=== PATIENT | male | born 1940 | race Caucasian/White ===

== ENCOUNTER 2018-05-07 06:11 | Inpatient (IN) | payer MEDICARE, OTHER, SELFPAY ==
[2018-04-22 09:59] VITALS: BMI 25.8
[2018-05-07] VITALS (13 sets, daily range): BP systolic 121–163; BP diastolic 72–97; PULSE 67–88; RESP 10–18; TEMP 35.8–37.3; O2SAT 94–99; BMI 25.8
[2018-05-07] MEDS: LACTATED RINGERS 1,000 ML 42 ML IV ×2 (07:10→10:08)
--- NOTE | 2018-05-07 08:00 | DI.RAD.S_ITS ---
PROCEDURE: XR LUMBAR SPINE 2-3V INDICATIONS: L3-4, L4-5 TLIF TECHNIQUE: 2 views of the lumbar spine were acquired. COMPARISON: [facility] MAI Chavez, SPINE LUMB 2 OR 3VW, 04/16/2017, 10:22. FINDINGS: Bones: AP and lateral images were obtained intraoperatively during discectomy at the L3-4 and L4-5 levels with posterior fixation including trans-peduncular screws and vertical connecting rods bilaterally L3-L5. Soft tissues: Overlying bowel gas pattern is normal. No suspicious soft tissue calcifications. IMPRESSION: Intraoperative imaging posterior discectomy and fusion L3-4 and L4-5. Dictated by: Jimmy Ignacio M.D. on 05/07/2018 at 12:38 Approved by: Jimmy Ignacio M.D. on 05/07/2018 at 12:39
[2018-05-07] MEDS: CEFAZOLIN 2 GM/100 ML FROZ.PIGGY IV ×2 (08:12→16:34)
--- NOTE | 2018-05-07 08:48 | SUR.OPER ---
Prone on spine table, head in foam head support, padded chest and pelvic supports, gel pad at knees, lower legs supported by pillows; nipples, genitalia and toes free of pressure, arms secured on foam padded arm boards at <90 degrees abduction. Tape over blanket at thigh secured to table.
[2018-05-07] MEDS: BUPIVACAINE 0.25% W/ EPI VIAL 50 ML INJ (09:00)
[2018-05-07] MEDS: BUPIVACAINE LIPOSOME 266 MG/20 ML VIAL INJ (09:01)
[2018-05-07] MEDS: ACETAMINOPHEN IV 1,000 MG/100 ML VIAL 400 MG IV (10:27)
--- NOTE | 2018-05-07 11:19 | PM.OP.1 ---
Operative Date/Time/Diagnoses Date of procedure: 05/07/18 Time of procedure: 08:19 Pre-op diagnosis: 1. L3-4, L4-5 spondylolisthesis 2. L2-3, L3-4, L4-5 spinal stenosis 3. L2-3, L3-4, L4-5 spondylosis with radiculopathy Post-op diagnosis: same Procedure & Clinicians Procedure: 1. L3-4, L4-5 Postero-lateral and posterior interbody fusion 2. L3-4, L4-5 interbody cage placement. 3. L3-4, L4-5 decompressive laminectomy with bilateral facetecomies 4. L3-4, L4-5 Posterior segmental instrumentation 5. L2-3 left hemilaminectomy 6. [place] of bone marrow from iliac crest 7. Utilization of microsurgical technique and operating microscope Same procedure as scheduled: Yes Indications: Patient has been having chronic back pain and worsening lumbar radiculopathy. Patient failed multiple conservative management with worsening pain weakness and numbness in her lower extremity. Patient has been having difficulty performing activity of daily living. After discussing risks benefits of treatment options, patient elected proceed with surgery. Surgeon: Shikha Huynh Dairy Processing Supervisor: April Robert Click Yes if Unassisted: No Anesthesia Type: General Operative Notes Closure Type: primary Specimen(s): none sent Implants & Drains: Globus rise cage and revolve screws Applied: catheter Estimated Blood Loss (mL): 100 Blood products transfused: none Procedure in detail: Patient was seen in the preoperative area. Risks and benefits of the surgery was discussed with the patient. Informed consent was obtained from the patient and placed in the chart. Surgical site was marked. Patient was taken to the operative room. General anesthesia was administered. Prophylactic antibiotic was given to the patient less than 30 min before the incision was made. Patient was placed into a prone position on the Monty table. Patient's back was then prepped and draped in the sterile fashion. Time-out was performed at this time. Using AP and lateral C-arm imaging the interval between L2-5 was identified and marked on patient's back. A 2 inch incision 2 in from midline was made on the left side first. The fascia was incised in line with skin incision. Globus MARS retractors was placed inside the incision and docked onto the L3 and L4 lamina. Using microsurgical technique and operating microscope, a L3 and L4 laminectomy and L3-4, L4-5 facetectomy was performed using a Kerrison rongeur. A L2-3 hemilaminectomy was performed using Kerrison rongeur by removing the left sided L2 lamina. The lateral recess was decompressed and ligamentum flavum was also resected using the Kerrison rongeur. After decompression at L2-3 level, the epidural space was fully decompressed. The disc space at L3-4, L4-5 was identified. And a total diskectomy was performed at L3-4, L4-5 level. The endplates were decorticated using a rasp and shaver. The total diskectomy and decortication was performed at L3-4, L4-5 level in order to to accomplish a L3-4, L4-5 fusion. The local bone from the laminectomy and facetectomy was saved for local bone grafting. After the total diskectomy and decortication was completed, Globus viacell bone graft material was combined with local bone that was harvested earlier. At this time, a separate skin is incision was made over the iliac crest. A Jamshidi needle was inserted into the iliac crest through a separate skin incision. 5 cc of bone marrow aspiration was obtained through the separate skin incision using a Jamshidi needle from the iliac crest. The bone marrow aspiration was combined with local bone and the via cell bone grafting material. The bone grafting material was placed into the L3-4, L4-5 interbody space along with two cages, one expandable cage at each level. The cages were expanded to their maximum height using the torque limiting screwdriver. At this time a mirror image incision was made on the right side. The fascia was incised in line with the skin incision. Globus MARS retractor was inserted and docked onto the L3-4, L4-5 posterolateral gutter. Using the power drill, posterior-lateral decortication was performed at L3-4, L4-5 level until bleeding cortical bone was identified. The remaining bone grafting material was placed into the L3-4, L4-5 posterior lateral gutter he order to accomplish posterolateral fusion at the L4-5 L5-S1 levels. Using the double C-arm technique, pedicle screws were placed into the L3, L4, L5 pedicles bilaterally. This was done by placing the Jamshidi needle into the pedicles, then placing the guidewires over the Jamshidi needle, and finally placing the cannulated screws over the guidewires bilaterally. After the pedicle screws were placed, 2 titanium rods was locked into the heads of the pedicle screws using locking caps and torque limiting screwdriver. Total 6 pedicles screws were placed. Threaded oil lease operator was to used to reduce patient's spondylolisthesis. Patient's spondylolisthesis was reduced to near anatomic position and locked into position using the locking caps. After all the hardware was placed, and confirmed with AP and lateral C-arm imaging, the wound was then irrigated with sterile normal saline and packed with Ray-Pierer gauze for 3 min to accomplish hemostasis. After the gauze was removed the deep fascia was closed with #1 Vicryl suture. The subcutaneous layer was closed with 2-0 Vicryl. The skin was closed with skin sherry. Patient tolerated the procedure well. There were no complications. Complications: none Condition: stable Disposition: PACU Plan for aftercare: Admit to inpatient hospital
--- NOTE | 2018-05-07 11:26 | P.OP_ITS ---
Operative Date/Time/Diagnoses Date of procedure: 05/07/18 Time of procedure: 08:19 Pre-op diagnosis: 1. L3-4, L4-5 spondylolisthesis 2. L2-3, L3-4, L4-5 spinal stenosis 3. L2-3, L3-4, L4-5 spondylosis with radiculopathy Post-op diagnosis: same Procedure & Clinicians Procedure: 1. L3-4, L4-5 Postero-lateral and posterior interbody fusion 2. L3-4, L4-5 interbody cage placement. 3. L3-4, L4-5 decompressive laminectomy with bilateral facetecomies 4. L3-4, L4-5 Posterior segmental instrumentation 5. L2-3 left hemilaminectomy 6. [place] of bone marrow from iliac crest 7. Utilization of microsurgical technique and operating microscope Same procedure as scheduled: Yes Indications: Patient has been having chronic back pain and worsening lumbar radiculopathy. Patient failed multiple conservative management with worsening pain weakness and numbness in her lower extremity. Patient has been having difficulty performing activity of daily living. After discussing risks benefits of treatment options, patient elected proceed with surgery. Surgeon: Shikha Huynh Multi Purpose Machine Operator: April Robert Click Yes if Unassisted: No Anesthesia Type: General Operative Notes Closure Type: primary Specimen(s): none sent Implants & Drains: Globus rise cage and revolve screws Applied: catheter Estimated Blood Loss (mL): 100 Blood products transfused: none Procedure in detail: Patient was seen in the preoperative area. Risks and benefits of the surgery was discussed with the patient. Informed consent was obtained from the patient and placed in the chart. Surgical site was marked. Patient was taken to the operative room. General anesthesia was administered. Prophylactic antibiotic was given to the patient less than 30 min before the incision was made. Patient was placed into a prone position on the Monty table. Patient's back was then prepped and draped in the sterile fashion. Time- out was performed at this time. Using AP and lateral C-arm imaging the interval between L2-5 was identified and marked on patient's back. A 2 inch incision 2 in from midline was made on the left side first. The fascia was incised in line with skin incision. Globus MARS retractors was placed inside the incision and docked onto the L3 and L4 lamina. Using microsurgical technique and operating microscope, a L3 and L4 laminectomy and L3-4, L4-5 facetectomy was performed using a Kerrison rongeur. A L2-3 hemilaminectomy was performed using Kerrison rongeur by removing the left sided L2 lamina. The lateral recess was decompressed and ligamentum flavum was also resected using the Kerrison rongeur. After decompression at L2- 3 level, the epidural space was fully decompressed. The disc space at L3-4, L4- 5 was identified. And a total diskectomy was performed at L3-4, L4-5 level. The endplates were decorticated using a rasp and shaver. The total diskectomy and decortication was performed at L3-4, L4-5 level in order to to accomplish a L3-4 , L4-5 fusion. The local bone from the laminectomy and facetectomy was saved for local bone grafting. After the total diskectomy and decortication was completed, Globus viacell bone graft material was combined with local bone that was harvested earlier. At this time, a separate skin is incision was made over the iliac crest. A Jamshidi needle was inserted into the iliac crest through a separate skin incision. 5 cc of bone marrow aspiration was obtained through the separate skin incision using a Jamshidi needle from the iliac crest. The bone marrow aspiration was combined with local bone and the via cell bone grafting material. The bone grafting material was placed into the L3-4, L4-5 interbody space along with two cages, one expandable cage at each level. The cages were expanded to their maximum height using the torque limiting screwdriver. At this time a mirror image incision was made on the right side. The fascia was incised in line with the skin incision. Globus MARS retractor was inserted and docked onto the L3-4, L4-5 posterolateral gutter. Using the power drill, posterior-lateral decortication was performed at L3-4, L4-5 level until bleeding cortical bone was identified. The remaining bone grafting material was placed into the L3-4, L4-5 posterior lateral gutter he order to accomplish posterolateral fusion at the L4-5 L5-S1 levels. Using the double C-arm technique, pedicle screws were placed into the L3, L4, L5 pedicles bilaterally. This was done by placing the Jamshidi needle into the pedicles, then placing the guidewires over the Jamshidi needle, and finally placing the cannulated screws over the guidewires bilaterally. After the pedicle screws were placed, 2 titanium rods was locked into the heads of the pedicle screws using locking caps and torque limiting screwdriver. Total 6 pedicles screws were placed. Threaded auto bumper mechanic was to used to reduce patient's spondylolisthesis. Patient's spondylolisthesis was reduced to near anatomic position and locked into position using the locking caps. After all the hardware was placed, and confirmed with AP and lateral C-arm imaging, the wound was then irrigated with sterile normal saline and packed with Ray-Pierre gauze for 3 min to accomplish hemostasis. After the gauze was removed the deep fascia was closed with #1 Vicryl suture. The subcutaneous layer was closed with 2-0 Vicryl. The skin was closed with skin sherry. Patient tolerated the procedure well. There were no complications. Complications: none Condition: stable Disposition: PACU Plan for aftercare: Admit to inpatient hospital
--- NOTE | 2018-05-07 11:30 | PM.PREOP ---
Pre-operative Note Interval Note Pre-op Check: Yes History & Physical Reviewed by Physician, Yes Exam Performed and Yes History & Physical exam performed today by Physician Changes: No
[2018-05-07] MEDS: HYDROMORPHONE 2 MG INJ 0.25 MG IV ×8 (11:40→12:15)
[2018-05-07] MEDS: SODIUM CHLORIDE 0.9% 1,000 ML 100 ML IV (13:14)
[2018-05-07] MEDS: OXYCODONE IR 5 MG TABLET 10 MG PO ×4 (13:17→21:25)
--- NOTE | 2018-05-07 14:43 | PC.NURSE ---
Pt to floor at 1230. Given 2 percolone about an hour apart. Pain level is a 3/10. Pt is resting and visiting with his . IVF of NS infusing at 100cc/hr. O nausea and taking fluids and ice chips well.
--- NOTE | 2018-05-07 15:43 | PT.IIE ---
Current Diagnoses Spondylolisthesis, lumbar region (05/07/18) Other spondylosis with radiculopathy, lumbar region (05/07/18) Spinal stenosis, lumbar region without neurogenic claudication (05/07/18) Surgery Performed Operation Date: 05/07/18 07:45 Actual Procedures p L2-3 Right Hemilaminectomy, L3-4, L4-5 TLIF w/Posterior Instru. - Shikha Huynh MD Surgical History (Last Updated 04/22/18 @ 11:05 by Casandra Noonan RN) History of right inguinal hernia repair (Acute) Hx of arthroscopy of left knee (Acute) Hx of tonsillectomy (Acute) Status post cataract extraction of both eyes with insertion of intraocular lens (Acute) Medical History (Last Updated 04/22/18 @ 10:46 by Casandra Noonan RN) Afib (Acute) BPH (benign prostatic hyperplasia) (Acute) Chronic systolic CHF (congestive heart failure) (Acute) HTN (hypertension) (Acute) Non-ischemic cardiomyopathy (Acute) Presence of combination internal cardiac defibrillator (ICD) and pacemaker (Acute) Sleep apnea with use of continuous positive airway pressure (CPAP) (Acute) Physical Therapy Inpatient Evaluation/Re-Eval M1 PT/OT-IP Prior Functional Status Start: 05/07/18 16:21 Freq: NEEDED Status: Active Protocol: Document 05/07/18 15:43 MDD (Rec: 05/07/18 16:31 MDD [id number]) Medical Review Prior Functional Status Medical History Reviewed Yes Communication normal Mobility and Gait independent with no AD Activities of Daily Living and IADL's independent Social History Household Members spouse Living Arrangements House Number of Floors (Floors) One Floor Number of Stairs To Enter/Railing? 2-3 steps, railing present ( single) Home Environment Standard Height Toilet Walk in Shower Home Equipment Front Wheel Walker Straight Cane Crutches Shower Seat with Backrest Repair Armature Winder Grab Bars Near Toilet Employment Status Retired Additional Social History Comment Pt and his live in [place] on [address] 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 Their son lives next door, but works daytime caregiver. M2 PT-IP Current Condition Start: 05/07/18 16:21 Freq: NEEDED Status: Active Protocol: Document 05/07/18 15:43 MDD (Rec: 05/07/18 16:31 [facility] [id number]) Physical Therapy Current Condition Current Condition Evaluation Date 05/07/18 Treatment Diagnosis s/p lumbar surgery Onset Date 05/07/18 Precautions Cervical Spine Precautions Soft Collar for Comfort Soft Collar at all Times Rigid Collar No Heavy Lifting Log Roll Other Precautions cody catheter Weight Bearing Status Weight Bearing Status Weight Bear as Tolerated M3 PT-IP Subjective Start: 05/07/18 16:21 Freq: NEEDED Status: Active Protocol: Document 05/07/18 15:43 MDD (Rec: 05/07/18 16:31 [facility] [id number]) Subjective Physical Therapy Visit Type Type Initial Evaluation Visit Start Time 15:05 Visit Stop Time 15:43 Total Visit Minutes 38 Notes BP at beginning of session: 139/97 (supine) sitting EOB: 147/101 after gait: 148/95 Number of HOME HEALTH OUTREACH COORDINATOR Visits 0 Therapy Pain Assessment Pain When Pain Assessed At Rest Pain Present Pain Present Pain Reported Location Lower back Intensity 3 Scale Used Numeric (1 - 10) Description Aching M4 PT-IP Mobility and Gait Start: 05/07/18 16:21 Freq: NEEDED Status: Active Protocol: Document 05/07/18 15:43 MDD (Rec: 05/07/18 16:31 [facility] [id number]) PT-Bed Mobility Assessment Rolling Type of Rolling Log Rolling Roll to Left Level of Assist Standby Assistance Supine to Sit Supine to Sit Minimal Assistance Sit to Supine Sit to Supine Standby Assistance Scooting Scooting to Edge of Bed Independent Scooting Up and Down in Bed Independent PT-Transfer Assessment Sit to and From Stand Sit to and from Stand Contact Guard Assistance Equipment Transfer Assistive Device Gait Belt Front Wheeled Walker Gait Assessment Gait Gait Assistance Required: Contact Guard Assist Distance (Feet) (feet) 15 Assistive Devices Assistive Device Gait Belt Front Wheeled Walker Gait Deviations General Gait Pattern Within Normal Limits Decreased Stride Length Comments Gait Comments Cues for improved posture. PT-Balance Assessment Sitting Balance and Reactions Static Sitting Balance Ability Good Dynamic Sitting Balance Ability Good Standing Balance and Reactions Static Standing Balance Ability Normal Dynamic Standing Balance Ability Good M5 PT-IP Objective Assessments Start: 05/07/18 16:21 Freq: NEEDED Status: Active Protocol: Document 05/07/18 15:43 MDD (Rec: 05/07/18 16:31 [facility] [id number]) Orientation Orientation/Cognition Level of Alertness Alert Orientation Name Age Birthday Month Date Year Day of Week Place Situation Language Function Ability No Deficits Noted Safety Awareness Understands Safety Issues Memory Description No Deficits Noted Gross Range of Motion Lower Extremity ROM Assessment Within Functional Limits Strength Lower Extremity Strength Assessment Within Functional Limits Sensation Assessment Sensation Gross Sensation WNL Light Touch Intact M6 PT-IP Treatment Start: 05/07/18 16:21 Freq: NEEDED Status: Active Protocol: Document 05/07/18 15:43 MDD (Rec: 05/07/18 16:31 MDD [id number]) Physical Therapy Treatment Education Education Provided Precautions Post-Op Packet Safety M7 PT-IP Assessment and Plan Start: 05/07/18 16:21 Freq: NEEDED Status: Active Protocol: Document 05/07/18 15:43 MDD (Rec: 05/07/18 16:31 MDD [id number]) PT Summary Assessment and Plan Potential Rehabilitation Potential Excellent Status of Condition at Evaluation Stable Summary Impairments Pain Bed Mobility Transfers Gait Activity Tolerance Progress Towards Goals Progressing Toward Goals Assessment Summary Pt demonstrates ability to perform log roll to left today with minimal verbal cues and SBA and able to sit up with CGA. Blood pressure was elevated, so walking limited to in room. Demonstrates stable gait with FWW. Will need to be able to ascend/ descend 2-3 stairs with single railing prior to d/c. Goals Bed Mobility Goal Independent Transfer Goal Independent Gait Goal Independent Gait Distance 100 feet with FWW Other Goals Ascend/descend 3 steps with single railing Days to Meet Goals 3 Frequency of Treatment Frequency Of Treatment Twice a Day Treatment Plan Physical Therapy Treatment Plan Bed Mobility Training Transfer Training Gait Training Therapeutic Exercise Discharge Planning Recommendations To Nursing Amount of Assist Needed Standby Assistance Discharge Recommendations PT Discharge Recommendations Home
[2018-05-07] MEDS: CARVEDILOL 25 MG TABLET PO (20:33)
[2018-05-07] MEDS: DOCUSATE 100 MG CAPSULE PO (20:34)
[2018-05-07] MEDS: SENNOSIDES 8.6 MG TABLET 17.2 MG PO (20:34)
--- NOTE | 2018-05-07 21:28 | PC.NURSE ---
Per pt request, escobar MO'ed at 1954. Pt stating it was uncomfortable and stating he wanted it out, 650 clear bryan urine drained. Ambulated with pt in the halls, pt steady on feet, denies numbness,tingling, and dizziness, 1 PA FWW. Pt denies need for 2 pain pills, requesting only 5 mg of PRN oxycodone, rating his pain in his lower back 3-4/10. Dressing to lower back CDI. Pt denies nausea, tolerated regular diet for dinner. Pt calling appropriately and making needs known to staff. Call light in reach. BA active.
[2018-05-08] MEDS: SODIUM CHLORIDE 0.9% 1,000 ML 100 ML IV
[2018-05-08] MEDS: hydrOXYzine pamoate 25 MG CAPSULE PO (00:33)
[2018-05-08] MEDS: OXYCODONE IR 5 MG TABLET 10 MG PO ×3 (00:33→08:14)
[2018-05-08] MEDS: CEFAZOLIN 2 GM/100 ML FROZ.PIGGY IV (00:33)
[2018-05-08 04:32] VITALS: BP 134/85; PULSE 73; RESP 17; TEMP 36.8; O2SAT 98
--- NOTE | 2018-05-08 05:18 | PC.NURSE ---
pt confused early this am aprx 043, had gotten oob to stand and use urinal at bedside after automobile engine assembler checked on bed alarm. pt had been so thru the night and would sit back down on side of bed. when rechecked pt was up in room w/gown on backwards, water (or urine) on floor, and iv no longer attatched. pt stated I must have been sleepwalking. no signs of bleeding from iv site, iv cath intact,no reports of discomfort to area. pt was aware he was in the hospital, knew he had had back surgery yesterday.remembered this rn's name and that back drsg was reinforced earlier.reoriented to time/place and assisted back to bed, reminded pt to call prior to getting out of bed and reset alarm. pt completed iv antibiotics, and taking po pain meds, did not restart iv.
[2018-05-08 05:45] LABS: Hematocrit 34.3 % (41-53); Hemoglobin 11.8 g/dL (13.5-17.5)
[2018-05-08] MEDS: DOCUSATE 100 MG CAPSULE PO (08:14)
[2018-05-08] MEDS: SPIRONOLACTONE 25 MG TABLET PO (08:14)
[2018-05-08] MEDS: CARVEDILOL 25 MG TABLET PO (08:14)
[2018-05-08] MEDS: TAMSULOSIN 0.4 MG CAPSULE PO (08:14)
[2018-05-08 08:20] VITALS: BP 129/84; PULSE 84; RESP 16; TEMP 37.2; O2SAT 96
[2018-05-08] MEDS: DOFETILIDE 125 MCG 125 EACH PO (08:28)
[2018-05-08] MEDS: SACUBITRIL VALSARTAN 1 EACH PO (08:29)
--- NOTE | 2018-05-08 09:07 | PC.NURSE ---
Pt up ambulating in his room alone. Explained to pt that he should call for help as he could fall and hurt himself. Sitting up in chair now and ate well at breakfast. Dressing to lower back is cdi. Pt denies any numbness or tingling in lower extremities. Visiting with his . She brought two meds from home that patient needed.
--- NOTE | 2018-05-08 09:35 | OT.IP.EVAL ---
Current Diagnoses Spondylolisthesis, lumbar region (05/07/18) Other spondylosis with radiculopathy, lumbar region (05/07/18) Spinal stenosis, lumbar region without neurogenic claudication (05/07/18) Surgery Performed Operation Date: 05/07/18 07:45 Actual Procedures p L2-3 Right Hemilaminectomy, L3-4, L4-5 TLIF w/Posterior Instru. - Shikha Huynh MD Past Medical History (Last Updated 04/22/18 @ 10:46 by Casandra Noonan RN) Afib (Acute) BPH (benign prostatic hyperplasia) (Acute) Chronic systolic CHF (congestive heart failure) (Acute) HTN (hypertension) (Acute) Non-ischemic cardiomyopathy (Acute) Presence of combination internal cardiac defibrillator (ICD) and pacemaker (Acute) Sleep apnea with use of continuous positive airway pressure (CPAP) (Acute) Surgical History (Last Updated 04/22/18 @ 11:05 by Casandra Noonan RN) History of right inguinal hernia repair (Acute) Hx of arthroscopy of left knee (Acute) Hx of tonsillectomy (Acute) Status post cataract extraction of both eyes with insertion of intraocular lens (Acute) Occupational Therapy Inpatient Evaluation/Re-Eval M1 PT/OT-IP Prior Functional Status Start: 05/08/18 14:01 Freq: NEEDED Status: Active Protocol: Document 05/08/18 14:02 EMMANUEL (Rec: 05/08/18 14:10 EMMANUEL [id number]) Medical Review Prior Functional Status Medical History Reviewed Yes Diet/Fluid Consistency Regular Communication normal Mobility and Gait independent with no AD Activities of Daily Living and IADL's independent Prior Functional Level (Other details) Pt lives [place] acres, he hires some help to assist with land management Social History Household Members spouse Living Arrangements House Number of Floors (Floors) One Floor Number of Stairs To Enter/Railing? 2-3 steps, railing present ( single) Home Environment Standard Height Toilet Walk in Shower Home Equipment Front Wheel Walker Straight Cane Crutches Shower Seat with Backrest Psychological Operations Grab Bars Near Toilet Employment Status Retired Additional Social History Comment Pt and his live in [place] on [address] acres [address]. 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 Their son lives next door, but works crop farm helper. M2 OT-IP Current Condition Start: 05/08/18 14:01 Freq: Status: Active Protocol: Document 05/08/18 14:02 PJM (Rec: 05/08/18 14:10 PJM [id number]) Occupational Therapy Current Condition Current Condition Evaluation Date 05/08/18 Treatment Diagnosis assess self care after L3-4, L4-5 decompressive lami, fusion Post Operative Precautions Cervical Spine Precautions Soft Collar for Comfort Soft Collar at all Times Rigid Collar No Heavy Lifting Log Roll Other Precautions cody catheter Weight Bearing Status Weight Bearing Status Weight Bear as Tolerated M3 OT- IP Subjective and Pain Start: 05/08/18 14:01 Freq: Status: Active Protocol: Document 05/08/18 14:02 PJM (Rec: 05/08/18 14:10 PJM [id number]) OT- Subjective Occupational Therapy Visit Type Type Initial Evaluation Visit Start Time 09:15 Visit Stop Time 09:35 Total Visit Minutes 20 Notes Pt's here for education this session. Pt/ familiar with lumbar spine precautions and adapted self care techniques as had lumbar spine surgery by same surgeon 1 yr ago. Occupational Therapy Visit Comments Patient Comments I am feeling pretty good. Patient/Caregiver Goals to go home today OT Pain Assessment Pain When Pain Assessed After Treatment Pain Present Pain Present Pain Reported Location Lower back Intensity 4 Scale Used Numeric (1 - 10) Description Aching Acute M4 OT- IP ADL's Start: 05/08/18 14:01 Freq: Status: Active Protocol: Document 05/08/18 14:02 PJM (Rec: 05/08/18 14:10 PJM [id number]) OT BOP-Waop-Cquazjw General Evaluation Self-Feeding Ability Independent OT ADL-Grooming General Evaluation Grooming Ability Independent Comments OT Grooming Comments Pt standing at sink when therapist arrived. Provided education re: body mechanics at sink. OT ADL-Oral Care General Eval Oral Care Ability Independent OT ADL-Dressing General Eval Upper Body Dressing Ability Independent Lower Body Dressing Ability Minimal Assistance Areas Needing Assistance Underpants/Brief Pants/Shorts Socks Shoes Assistive Devices Dressing Assistive Devices Long Handled Shoe Horn Psychological Operations Comments OT Dressing Comments Pt/ decline sock aid a she prefers to have assist. 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 Provided long shoe horn for slip on shoes. OT ADL-Toileting General Evaluation Toileting Ability Independent Comments OT Toileting Comments Pt has RTS to use PRN at home. OT ADL-Bathing Comments OT Bathing Comments Pt declines to shower here. can provide SBA at home. M5 OT- IP IADL's Start: 05/08/18 14:01 Freq: Status: Active Protocol: Document 05/08/18 14:02 PJ (Rec: 05/08/18 14:10 [facility] [id number]) OT-Instrumental Activities of Daily Living Deficits IADL Deficits Identified Deficits Home Safety Awareness Awareness of Need for Assistance at Home Good Awareness Ability to Problem Solve Emergency Able to Problem Solve Situations Money Management Money Management No Deficits Identified Meal Preparation Meal Preparation Caregiver Provides Assist Bar Finish Operator Bar Finish Operator Caregiver Provides Assist Driving Driving Caregiver Provides Assist Driving Comments until pt able M6 OT- IP Functional Cognition Start: 05/08/18 14:01 Freq: Status: Active Protocol: Document 05/08/18 14:02 PJ (Rec: 05/08/18 14:10 [facility] [id number]) Cognitive Factors Limiting Selfcare Function Cognitive Ability Level of Alertness Alert Patient Orientation Name Age Birthday Month Date Year Day of Week Place Situation Attention Span Ability Capable of Focused Attention Ability to Follow Commands Able to Follow Multi-Step Commands Memory Description No Deficits Noted Safety Awareness No Deficits Noted Problem Solving Ability No deficits Noted Executive Function Ability No Deficits Noted Abstract Thinking Ability No Deficits Noted Cognitive Comments Cognitive Assessment Comments Pt recalls 3/3 lumbar spine precautions. OT- Vision and Hearing OT- Hearing Assessment OT- Hearing Assessment WFL OT- Vision Assessment Visual Acuity WFL Vision Assessment Comments no recent changes reported M7 OT- IP Mobility and Balance Start: 05/08/18 14:01 Freq: Status: Active Protocol: Document 05/08/18 14:02 PJ (Rec: 05/08/18 14:10 [facility] [id number]) OT-Transfer Assessment Sit to and From Stand Sit to and from Stand Independent Transfers Transfer Ability Independent Technique Transfer Destination Chair Toilet Devices Transfer Assistive Devices Front Wheeled Walker OT- Gait Assessment Gait Gait Assistance Required: Standby Assistance Comments Gait Ability Comments PT eval pending OT- Balance Assessment Sitting Balance and Reactions Static Sitting Balance Ability Normal Dynamic Sitting Balance Ability Normal Standing Balance and Reactions Static Standing Balance Ability Normal Dynamic Standing Balance Ability Good M8 OT- IP Objective Assessments Start: 05/08/18 14:01 Freq: Status: Active Protocol: Document 05/08/18 14:02 PJ (Rec: 05/08/18 14:10 [facility] [id number]) OT Gross Range of Motion Upper Extremity Range of Motion Assessment Within Functional Limits OT Strength Upper Extremity Strength Assessment Within Functional Limits OT- Coordination Assessment Comments Coordination Comments BUE WFL OT Sensation Assessment Comments Summary Comments BUE WNL Edema Edema Absent M9 OT- IP Assessment and Plan Start: 05/08/18 14:01 Freq: Status: Active Protocol: Document 05/08/18 14:02 PJ (Rec: 05/08/18 14:10 [facility] [id number]) OT Summary Assessment and Plan Potential Rehabilitation Potential Excellent Analytic Complexity at Evaluation Low Summary Assessment Summary Low complexity OT assessment and brief review of lumbar precautions and adapted ADLS completed in one session. Pt/ familiar with all concepts due to 's lumbar surgery 1 yr ago. Pt plans to d/c home today with 24 hr assist from [employer] , and son lives next door. No further OT services needed. Frequency of Treatment Frequency Of Treatment Discharge
--- NOTE | 2018-05-08 09:47 | PT.IPTN ---
Current Diagnoses Spondylolisthesis, lumbar region (05/07/18) Other spondylosis with radiculopathy, lumbar region (05/07/18) Spinal stenosis, lumbar region without neurogenic claudication (05/07/18) Surgery Performed Operation Date: 05/07/18 07:45 Actual Procedures p L2-3 Right Hemilaminectomy, L3-4, L4-5 TLIF w/Posterior Instru. - Shikha Huynh MD Physical Therapy Treatment Note M2 PT-IP Current Condition Start: 05/07/18 16:21 Freq: NEEDED Status: Active Protocol: Document 05/07/18 15:43 MDD (Rec: 05/07/18 16:31 MDD [id number]) Physical Therapy Current Condition Current Condition Evaluation Date 05/07/18 Treatment Diagnosis s/p lumbar surgery Onset Date 05/07/18 Precautions Cervical Spine Precautions Soft Collar for Comfort Soft Collar at all Times Rigid Collar No Heavy Lifting Log Roll Other Precautions cody catheter Weight Bearing Status Weight Bearing Status Weight Bear as Tolerated M3 PT-IP Subjective Start: 05/07/18 16:21 Freq: NEEDED Status: Active Protocol: Document 05/08/18 09:47 MDD (Rec: 05/08/18 09:57 MDD [id number]) Subjective Physical Therapy Visit Type Type Treatment Note Visit Start Time 09:34 Visit Stop Time 09:47 Total Visit Minutes 13 Number of EDITORIAL SPECIALIST Visits 0 Therapy Pain Assessment Pain When Pain Assessed During Mobility Pain Present Pain Present Pain Reported Location Lower back Intensity 3 Scale Used Numeric (1 - 10) Description Aching M4 PT-IP Mobility and Gait Start: 05/07/18 16:21 Freq: NEEDED Status: Active Protocol: Document 05/07/18 15:43 MDD (Rec: 05/07/18 16:31 MDD [id number]) PT-Bed Mobility Assessment Rolling Type of Rolling Log Rolling Roll to Left Level of Assist Standby Assistance Supine to Sit Supine to Sit Minimal Assistance Sit to Supine Sit to Supine Standby Assistance Scooting Scooting to Edge of Bed Independent Scooting Up and Down in Bed Independent PT-Transfer Assessment Sit to and From Stand Sit to and from Stand Contact Guard Assistance Equipment Transfer Assistive Device Gait Belt Front Wheeled Walker Gait Assessment Gait Gait Assistance Required: Contact Guard Assist Distance (Feet) (feet) 15 Assistive Devices Assistive Device Gait Belt Front Wheeled Walker Gait Deviations General Gait Pattern Within Normal Limits Decreased Stride Length Comments Gait Comments Cues for improved posture. PT-Balance Assessment Sitting Balance and Reactions Static Sitting Balance Ability Good Dynamic Sitting Balance Ability Good Standing Balance and Reactions Static Standing Balance Ability Normal Dynamic Standing Balance Ability Good M5 PT-IP Objective Assessments Start: 05/07/18 16:21 Freq: NEEDED Status: Active Protocol: Document 05/07/18 15:43 MDD (Rec: 05/07/18 16:31 MDD [id number]) Orientation Orientation/Cognition Level of Alertness Alert Orientation Name Age Birthday Month Date Year Day of Week Place Situation Language Function Ability No Deficits Noted Safety Awareness Understands Safety Issues Memory Description No Deficits Noted Gross Range of Motion Lower Extremity ROM Assessment Within Functional Limits Strength Lower Extremity Strength Assessment Within Functional Limits Sensation Assessment Sensation Gross Sensation WNL Light Touch Intact M6 PT-IP Treatment Start: 05/07/18 16:21 Freq: NEEDED Status: Active Protocol: Document 05/08/18 09:47 MDD (Rec: 05/08/18 09:57 MDD [id number]) Physical Therapy Treatment Education Education Provided Precautions Post-Op Packet Safety Other Treatments Other Treatment Performed Pt ambulated 212 feet with FWW , SBA. Demonstrates excellent static balance without UE support today. Ascended/ descended 3 steps with L hand railing (step over step pattern). Pt ambulated without FWW for short distance in room, appears steady. M7 PT-IP Assessment and Plan Start: 05/07/18 16:21 Freq: NEEDED Status: Active Protocol: Document 05/08/18 09:47 MDD (Rec: 05/08/18 09:57 MDD [id number]) PT Summary Assessment and Plan Potential Rehabilitation Potential Excellent Status of Condition at Evaluation Stable Summary Progress Towards Goals Safe For Discharge Goals Met Assessment Summary Pt demonstrates safety with transfers, bed mobility and gait. He was able to ascend/ descend 3 steps safely. Pt and his report confidence with home environment. Considered safe for d/c when medically appropriate. Goals Bed Mobility Goal Independent Transfer Goal Independent Gait Goal Independent Gait Distance 100 feet with FWW Other Goals Ascend/descend 3 steps with single railing Days to Meet Goals 3 Frequency of Treatment Frequency Of Treatment Twice a Day Treatment Plan Physical Therapy Treatment Plan Bed Mobility Training Transfer Training Gait Training Therapeutic Exercise Discharge Planning Recommendations To Nursing Amount of Assist Needed Independent Discharge Recommendations PT Discharge Recommendations Home
--- NOTE | 2018-05-08 12:21 | PM.DS.1 ---
History of Present Illness Date Patient Seen: 05/08/18 Time Patient Seen: 12:27 Chief complaint: L2-3 rt hemilaminectomy L3-4 l4-5 tlif notes/codes Narrative: Patient is post op day 1. He is accompanied by his . Patient is awake and sitting upright in chair. He denies any fever, chills, respiratory distress or chest pain. He reports his pain is a 3/10 and tolerable. Patient is at home upon discharge. Patient states he is ready to go home. Discharge Providers Date of admission: 05/07/18 06:11 Consults: 05/07/18 12:53 Consult to Occupational Therapy Evaluate & Treat Comment: Physician Instructions: Evaluate and treat Consult to Physical Therapy Evaluate & Treat Comment: Physician Instructions: Evaluate and Treat Discharge provider: Shawanda Taylor PA-C Exam Vital Signs (past 8 hours): - 05/08/18 04:32 05/08/18 08:20 Temperature 98.2 F 99 F Pulse Rate 73 84 Respiratory Rate 17 16 Blood Pressure 134/85 H 129/84 H Pulse Oximetry 98 96 Oxygen Delivery Method Room Air Oxygen Flow Rate 0 Narrative Exam Narrative: Patient is AOx3. He is able to ambulate as tolerated . Lumbar spine dressing is clean and intact. There is no swelling noted. Slight tenderness to palpation. Limited lumbar ROM. Sensory and motor function intact in the LE bilaterally. Objective Labs Result Diagrams: 05/08/18 05:24 Labs: Laboratory Results - last 24 hr 05/08/18 05:24 Hgb 11.8 L Hct 34.3 L Discharge Plan Discharge Plan Patient Disposition: Home, Self-Care Discharge comment: DC home today Discharge Med Rec/Prescriptions Prescriptions: New oxycodone 5 mg Tablet 10 mg PO Q3HR PRN (Reason: Pain, Severe (7-10)) Qty: 45 RF: 0 hydroxyzine pamoate 25 mg Capsule 25 mg PO Q4HR PRN (Reason: Nausea And Vomiting) Qty: 30 RF: 0 Continue methotrexate sodium 2.5 MG tablet 4 tab PO QWEEKSU Qty: 0 RF: 0 tamsulosin [Flomax] 0.4 MG capsule,extended release 24hr 0.4 mg PO QDAY Qty: 0 RF: 0 carvedilol 25 mg Tablet 25 mg PO BID RF: 0 dofetilide [Tikosyn] 125 mcg Capsule 125 mcg PO Q12H RF: 0 spironolactone 25 mg Tablet 25 mg PO DAILY RF: 0 fluticasone [Flonase Allergy Relief] 50 mcg/actuation Cummings,Suspension 1 spray INTRANASAL DAILY PRN (Reason: seasonal allergies) RF: 0 rivaroxaban [Xarelto] 10 mg Tablet 10 mg PO BEDTIME RF: 0 sacubitril-valsartan [Entresto] 24-26 mg Tablet 1 tab PO BID RF: 0 Follow up/Referrals: Shikha Huynh MD [Physician] - (SNO in 10-14 days) Provider Discharge Instructions Diet: Diet as Tolerated Activity: Limit bending, twisting, lifting Cold/Heat Therapy: ice as needed Other treatments: Methotrexate was held 1 week prior to surgery and will be held 1 week after surgery. Skin/Wound/Dressing Care Report to your healthcare provider any signs of infection, such as:: chills, fever, night sweats, increased pain and unusual drainage Dressing: keep clean and dry Visit Report/Discharge Packet Visit Report Forms: Stroke Signs & Symptoms Discharge Data Attending Provider: Shikah Huynh Admit Date/Time: 05/07/18 06:11 Discharges patient from system. Discharge Date/Time: 05/08/18 12:31 Quality VTE Deep Vein Thrombosis/Pulmonary Embolism Present on Admission: No
--- NOTE | 2018-05-08 14:55 | CM.DANOTE ---
Discharge Planning/Care Management DCP: assessment: case received and met with pt and his this mornin. Introduced self and role. Pt is a 77 year old male who admitted yesterday for a planned ortho/spinal surgery Surgeon: Dr. Huynh P[place]: [place] [facility] [place] Pt was poised this morning to work with PT and OT. He identified his plan as home when stable. At that point he noted he was feeling more pain today. See now that pt did receive a d/c order from ortho PA and went home as per his plan. CM Discharge Assessment Start: 05/08/18 14:52 Freq: Status: Discharge Protocol: Document 05/08/18 14:53 ITV (Rec: 05/08/18 14:55 ITV [id number]) Discharge Planning Assessment History Provided By Patient Family Member Prior Living Arrangements House Household Members spouse Independent with ADL's Yes Is patient alert and oriented? Yes Review Status In Process Next Review Type Continued Stay Review
== END 2018-05-08 12:31 | disposition home or self-care (01) | DRG 454 ==
PROVIDERS: Admitting Provider Orthopaedic Surgery Orthopaedic Surgery of the Spine; Visit Provider Orthopaedic Surgery Orthopaedic Surgery of the Spine
PROC: 0SG10AJ Fusion of 2 or more Lumbar Vertebral Joints with Interbody Fusion Device, Posterior Approach, Anterior Column, Open Approach (ICD-10-PCS; principal; 2018-05-07 07:45)
DX: M43.16 Spondylolisthesis, lumbar region (principal); I50.22 Chronic systolic (congestive) heart failure; I42.8 Other cardiomyopathies; M48.061 Spinal stenosis, lumbar region without neurogenic claudication; M06.9 Rheumatoid arthritis, unspecified; I10 Essential (primary) hypertension; I48.91 Unspecified atrial fibrillation; Z79.01 Long term (current) use of anticoagulants; Z87.891 Personal history of nicotine dependence; M47.26 Other spondylosis with radiculopathy, lumbar region; M41.56 Other secondary scoliosis, lumbar region; G47.33 Obstructive sleep apnea (adult) (pediatric); Z95.0 Presence of cardiac pacemaker
CPT/HCPCS: 36415; 72100; 76001; 85014; 85018; 97161; 97165; 97530; C1776; C9290; J0131; J0690; J1100; J1170; J2704